=== PATIENT | female | born 1985 | race Caucasian/White ===

== ENCOUNTER 2018-07-31 03:14 | Inpatient (IN) | payer BC ==
[2014-11-10 10:19] VITALS: BMI 27.1
[2018-07-31] MEDS ORDERED: Lactated Ringer's 1,000 ML IV ONE (03:52)
--- NOTE | 2018-07-31 04:02 | OBHP ---
Datetime: 07/31/2018 03:55 IP Adm Impression: Term, intrauterine IP Admit Plan: Admit to unit Admit Comment, IP Provider: @ 38.4 wks GA c/o bright red vagina bleedig that started aroudn mid night with large gush and contraction green every 5 min 04/02, dendustin sany lof, dicharge, +FM. Pt preort feelign pressure. ptpreorts pnc unompicated no evidce of placenta previa. 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 PMH: Denies PSH: dneis FHX: unknown pt adopated SHX; negative etoh/tobaccodrugs NKDA MEDS: PNv A/P @ 38.4 wks GA with vaginal bleeding cannot r/o abruption vs labor -admit to L+D -npo, ivf -amssiomn / abruptn laobs -Tpye and cross -pain managment -Ultrsound Pelvic Type - PN: Adequate Extremities - PN: Normal Abdomen - PN: Normal Back - PN: Normal Breast - PN: Not Done Lungs - PN: Normal Heart - PN: Normal Thyroid - PN: Normal Neurologic - PN: Normal HEENT - PN: Normal General - PN: Normal Presentation-Admit: Vertex FHR - Baseline A Provider: 125 Membranes, Provider: Bulging Contraction Comments Provider: q 2-5 min Gestation - Est Wks by US: 38.4 IP Hx Assessment: The History has been Reviewed and is Current EGA AdmitDate IP: 38.4 Vital Signs Provider: Reviewed; Within Normal Limits IP Chief Complaint: Vaginal bleeding NICHD Variability Prov Fetus A: Moderate 6-25bpm FHR Category Provider Fetus A: Category I NICHD Decel Fetus A IP Provider: None Dilatation, Provider: 1 Effacement, Provider: 80 Station, Provider: -2 Genitourinary Exam: Normal DTRs - PN: Normal
--- NOTE | 2018-07-31 04:05 | OBADHP ---
Datetime: 07/31/2018 03:55 Admit Comment, IP Provider: @ 38.4 wks GA c/o bright red vagina bleedig that started aroudn mid night with large gush and contraction green every 5 min 04/02, thomas silva lof, dicharge, +FM. Pt preort feelign pressure. ptpreorts pnc unompicated no evidce of placenta previa. 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 PMH: Denies PSH: dneis FHX: unknown pt adopated SHX; negative etoh/tobaccodrugs NKDA MEDS: PNv A/P @ 38.4 wks GA with vaginal bleeding cannot r/o abruption vs labor -admit to L+D -npo, ivf -amssiomn / abruptn laobs -Tpye and cross -pain managment -Ultrsound Pelvic Type - PN: Adequate Extremities - PN: Normal Abdomen - PN: Normal Back - PN: Normal Breast - PN: Not Done Lungs - PN: Normal Heart - PN: Normal Thyroid - PN: Normal Neurologic - PN: Normal HEENT - PN: Normal General - PN: Normal Presentation-Admit: Vertex FHR - Baseline A Provider: 125 Membranes, Provider: Bulging Contraction Comments Provider: q 2-5 min Comments, ACOG Physical Exam: External Genitalia: no gross abnromalites,blood on perienum, Vagina: dark red blood in perinum Cervix: /-2 bulging, non tender Uteurs; non tender Adnexa /Pereinum: grossl y normal. Gestation - Est Wks by US: 38.4 IP Hx Assessment: The History has been Reviewed and is Current Vital Signs Provider: Reviewed; Within Normal Limits IP Chief Complaint: Vaginal bleeding NICHD Variability Prov Fetus A: Moderate 6-25bpm FHR Category Provider Fetus A: Category I NICHD Decel Fetus A IP Provider: None Dilatation, Provider: 1 Effacement, Provider: 80 Station, Provider: -2 Genitourinary Exam: Normal DTRs - PN: Normal EGA AdmitDate IP: 38.4 IP Adm Impression: Term, intrauterine IP Admit Plan: Admit to unit
[2018-07-31] MEDS ORDERED: Penicillin G 5 Million Unit Vial IVPB ONE ×2 (04:30→04:48)
[2018-07-31 05:09] LABS: BASO % 0.3 % (0.0-2.0); EOS # 0.1 K/uL (0.0-0.7); LYMPH # 1.5 K/uL (1.0-4.3); MEAN CELL VOLUME 86.5 fL (81.0-99.0); MEAN CORPUSCULAR HEMOGLOBIN 29.3 pg (27.0-31.0); MEAN CORPUSCULAR HGB CONC 33.9 g/dL (33.0-37.0); MEAN PLATELET VOLUME 9.3 fL (7.2-11.7); MONO # 0.7 K/uL (0.0-0.8); MONO % 7.3 % (0.0-10.0); NEUT # 7.1 K/uL (1.8-7.0); NEUT % 75.4 % (50.0-75.0); RBC 4.44 Mil/uL (3.80-5.20); RED CELL DISTRIBUTION WIDTH 13.3 % (11.5-14.5); WHITE BLOOD COUNT 9.4 K/uL (4.8-10.8)
[2018-07-31 05:19] LABS: SQUAMOUS EPITHIAL < 1 /hpf (0-5); URINE BACTERIA FEW (<OCC); URINE BILIRUBIN NEGATIVE (NEGATIVE); URINE BLOOD 3+ (NEGATIVE); URINE CLARITY Clear (Clear); URINE COLOR Yellow (YELLOW); URINE GLUCOSE (UA) NORMAL (Normal); URINE LEUKOCYTE ESTERASE NEG Leu/uL (Negative); URINE PROTEIN 1+ mg/dL (NEGATIVE); URINE UROBILINOGEN NORMAL mg/dL (0.2-1.0)
[2018-07-31 05:21] LABS: ALB/GLOB RATIO 1.2 (1.0-2.1); ALBUMIN 3.7 g/dL (3.5-5.0); ALT/SGPT 25 U/L (9-52); AST/SGOT 20 U/L (14-36); BLOOD UREA NITROGEN 10 mg/dL (7-17); CALCIUM 9.2 mg/dl (8.6-10.4); GFR NON-AFRICAN AMERICAN > 60
[2018-07-31 05:46] LABS: INR 0.9
--- NOTE | 2018-07-31 07:23 | OBPN ---
Datetime: 07/31/2018 07:00 IP Procedures: Artificial ROM IP Progress Plan: Continue present management Membranes, Provider: Ruptured Amniotic Fluid Color, Provider: Bloody Contraction Comments Provider: q 5 min FHR - Baseline A Provider: 140 Gestation - Est Wks by US: 38.4 Presentation-Admit: Vertex IP Progress Note Comment: pt rpeorts some vaigna bleeding, reprots contraction pain does not wnat pa in medcaion VSS VE /-2 arom bloody A/P @ 38.4 wks GA wtih VB in labor cannot r/o abupariotn -cont pad counts -serial labs -cont toco adn efm -anaglies prn -pt adviesd on close observation and concern re: abrupation and avised of contineud magnetn vs pos sible section all quetison anwerd Vital Signs Provider: Reviewed FHR Category Provider Fetus A: Category I NICHD Variability Prov Fetus A: Moderate 6-25bpm Dilatation, Provider: 1 Effacement, Provider: 90 Station, Provider: -2 NICHD Decel Fetus A IP Provider: None
[2018-07-31] MEDS ORDERED: Sodium Citrate/Citric Acid 15 ml Sol PO STA (07:42)
[2018-07-31] MEDS ORDERED: cefOXitin IV 2 gm in Saline 2 GM/50 ML BAG IVPB ONE (07:54)
[2018-07-31] MEDS ORDERED: Morphine 1 mg/ml preservative-free Inj(Duramorph) ONE (08:25)
[2018-07-31] MEDS: cefOXitin IV 2 gm in Dextrose 2 GM/50 ML BAG IVPB SCH ×3 (08:29→23:52)
[2018-07-31] MEDS ORDERED: Oxytocin 20 units in LR 2,000 ML IV ONE (08:39)
[2018-07-31] MEDS ORDERED: Phenylephrine 10 mg/ml Inj ONE (08:39)
[2018-07-31] MEDS ORDERED: Oxytocin 10 Units/ml Inj ONE (09:10)
[2018-07-31] MEDS ORDERED: Oxycodone/Acetaminophen 5/325 mg Tab PO PRN ×2 (09:55)
[2018-08-01 07:19] LABS: MEAN CELL VOLUME 87.4 fL (81.0-99.0); MEAN CORPUSCULAR HEMOGLOBIN 29.6 pg (27.0-31.0); MEAN CORPUSCULAR HGB CONC 33.8 g/dL (33.0-37.0); MEAN PLATELET VOLUME 9.4 fL (7.2-11.7); RBC 3.52 Mil/uL (3.80-5.20); RED CELL DISTRIBUTION WIDTH 13.8 % (11.5-14.5); WHITE BLOOD COUNT 12.6 K/uL (4.8-10.8)
[2018-08-01 07:41] LABS: HEMOGLOBIN 10.4 g/dL (11.0-16.0)
[2018-08-01] MEDS: Prenatal Multivit/Folic Acid/Iron Tab PO SCH (09:56)
--- NOTE | 2018-08-01 20:45 | OBPPN ---
Datetime: 08/01/2018 14:11 PP Pain Prov: Within normal limits PP Nausea Prov: Denies PP Flatus Prov: No PP BM Prov: Yes PP Breasts Prov: Not Done PP Heart Prov: Normal PP Lungs Prov: Normal PP Abdomen/Uterus Prov: Normal PP Lochia Prov: Normal PP Vulva/Perineum Prov: Not Done PP CVA Tenderness Prov: Not Done PP Extremities Prov: Normal PP C/S Incision Prov: Normal PP Comments Phys Exam Prov: Dressing clean, dry and intact Minimal Lochia PP Impression Prov: Normal progression PP Plan Prov: Continue present management PP Progress Note Prov: Patient is a 33F POD#1 S/P for placental abruption. Patient resting comfortably in bed and ambulating. Patient is attempting to breast feed but is gallagher pplementing with formula. She denies flatus but reports bowel movement. She is tolerating diet. Re ports 5/10 trell-incisional pain but is not taking pain medication because does not want it. She pola es calf tenderness, dyspnea, chest pain, nausea, vomiting. She reports vaginal bleeding that is ligh ter than menstrual bleed. Post-op H_H 10.4/13.0 Assessment: 33F POD#1 for placental abruption Plan: encourage ambulation encourage PO fluid intake pain medication as needed encourage breast feeding and consult abdominal binder only while ambulating IP PP Procedures: None Vital Signs Provider PP: Reviewed; Within Normal Limits
[2018-08-02] MEDS: Prenatal Multivit/Folic Acid/Iron Tab PO SCH (09:30)
--- NOTE | 2018-08-02 12:04 | OBPPN ---
Datetime: 08/02/2018 11:59 PP Pain Prov: Within normal limits PP Nausea Prov: Denies PP Flatus Prov: Yes PP BM Prov: No PP Breasts Prov: Not Done PP Heart Prov: Normal PP Lungs Prov: Not Done PP Abdomen/Uterus Prov: Normal PP Lochia Prov: Normal PP Vulva/Perineum Prov: Not Done PP CVA Tenderness Prov: Not Done PP Extremities Prov: Not Done PP C/S Incision Prov: Normal PP Progress Prov: Normal PP Comments Phys Exam Prov: appropriate post state PP Impression Prov: Normal progression PP Plan Prov: Continue present management PP Progress Note Prov: patient is status post primary CS POD #2 vitals stable, afebrile labs reviewed, drop in Hb and plts noted ,will repeat tomorrow, orders placed denies signs or symptoms of anemia incision healing well with steristrips, lochia normal encourage out of bed, ambulation continue routine post care IP PP Procedures: None Vital Signs Provider PP: Reviewed; Within Normal Limits
[2018-08-03 07:19] LABS: BASO % 0.3 % (0.0-2.0); EOS # 0.3 K/uL (0.0-0.7); EOS % 3.3 % (0.0-4.0); HEMOGLOBIN 9.6 g/dL (11.0-16.0); LYMPH # 1.6 K/uL (1.0-4.3); LYMPH % 17.8 % (20.0-40.0); MEAN CORPUSCULAR HEMOGLOBIN 30.2 pg (27.0-31.0); MEAN CORPUSCULAR HGB CONC 34.3 g/dL (33.0-37.0); MEAN PLATELET VOLUME 9.1 fL (7.2-11.7); MONO # 0.7 K/uL (0.0-0.8); MONO % 7.8 % (0.0-10.0); NEUT # 6.2 K/uL (1.8-7.0); NEUT % 70.8 % (50.0-75.0); RBC 3.18 Mil/uL (3.80-5.20); RED CELL DISTRIBUTION WIDTH 13.6 % (11.5-14.5); WHITE BLOOD COUNT 8.8 K/uL (4.8-10.8)
[2018-08-03] MEDS: Prenatal Multivit/Folic Acid/Iron Tab PO SCH (09:08)
[2018-08-03] MEDS ORDERED: Bisacodyl 5mg EC Tab PO ONE (09:40)
[2018-08-03] MEDS ORDERED: Influenza Vaccine 60 MCG/0.5 ML SYR (3 yr & up) IM ONE (10:00)
--- NOTE | 2018-08-03 10:18 | OBDCSUM ---
Datetime: 08/03/2018 10:16 Discharged to, Provider: Home Follow up at, Provider: Dr Atkinson Disch Instr Activity: Normal activity Disch Instr Diet: Regular Discharge Instructions, Provider: Routine instructions given Discharge Diagnosis, Provider: Term Delivered Discharge Time: 08/03/2018 10:16 Follow up in weeks, Provider: 08/09/18 Disch Referrals: None Contraception discussed, Prov: Yes Disch Activity Restrictions: No sexual activity; Nothing in vagina - [place], tampons, douche Discharge Comment, Provider: precautins given Contraception after Delivery: Not Planning to Use
--- NOTE | 2018-08-03 10:18 | OBPPN ---
Datetime: 08/03/2018 10:13 PP Pain Prov: Within normal limits PP Nausea Prov: Denies PP Flatus Prov: Yes PP BM Prov: No PP Breasts Prov: Normal PP Heart Prov: Normal PP Lungs Prov: Normal PP Abdomen/Uterus Prov: Normal PP Lochia Prov: Normal PP Vulva/Perineum Prov: Normal PP CVA Tenderness Prov: Normal PP Extremities Prov: Normal PP C/S Incision Prov: Normal PP Progress Prov: Normal PP Impression Prov: Normal progression PP Plan Prov: Continue present management; Discharge PP Progress Note Prov: pt seen adn examiend preort pain contorlled, ambuting, voidng, passign flatus , no BM, otleratign regualr diet withotu nause, vomitng, cp, sob, urinary complaint. pt is breat and bottel feedign and denies any sadness or depression VSS PE gen :N nad AAO x 3 RESP Ctab/l CVS: rrr, +S1/S2 BREAST: sot, NT, non enroged b/l ABD: soft, NT/ND, +BS, no guaridng, no rebound tendnerss, no rigdity FUNDUS: Firm, belwo level of umbiclus INCCSION C/?DI hwealling well VE: minmal lochai, non fusl smelling EX:T negative amy's sign, no calf tendnerness A/P S/p PTLCS POD #3 doignw ell f/u am labs bowel regimen anticiapte dc home f/u clinci 1 week precation givne IP PP Procedures: None Vital Signs Provider PP: Reviewed; Within Normal Limits
[2018-08-03] MEDS: Magnesium Hydroxide Susp 30 ml UD PO ONE (10:31)
[2018-08-03 11:42] VITALS: BP 115/69; PULSE 60; RESP 18; TEMP 97; O2SAT 99
== END 2018-08-03 13:40 | disposition home or self-care (01) | DRG 788 ==
LOC: C.L&DOP 03:14 → C.EROB 03:14 → C.4D 03:52 → C.4M 13:28
PROVIDERS: ADMIT Obstetrics & Gynecology; ATTEND Obstetrics & Gynecology
PROC: 10D00Z1 Extraction of Products of Conception, Low, Open Approach (ICD-10-PCS; principal; 2018-07-31)
PROC: 10907ZC Drainage of Amniotic Fluid, Therapeutic from Products of Conception, Via Natural or Artificial Opening (ICD-10-PCS; 2018-07-31)
DX: O45.93 Premature separation of placenta, unspecified, third trimester (principal); O99.824 Streptococcus B carrier state complicating childbirth; Z37.0 Single live birth; Z3A.38 38 weeks gestation of pregnancy

== ENCOUNTER 2018-11-07 16:02 | Outpatient (CLI) | payer BC | END 2018-11-07 16:03 | disposition home or self-care (01) | LOC: C.RADIC 16:02 ==